=== PATIENT | male | born 1985 | race Caucasian/White ===

== ENCOUNTER → 2022-01-10 12:41 | Outpatient (CLI) | payer OTHER, SELFPAY ==
--- NOTE | 2022-01-10 | DI.MRI.S_ITS ---
PROCEDURE: MR CERVICAL SPINE WO CON INDICATIONS: Unspecified thoracic, thoracolumbar and lumbosacra TECHNIQUE: Noncontrast sagittal T1 spin echo and T2 fast spin echo, sagittal STIR, foraminal oblique sagittal T2 fast spin echo, and axial gradient echo or T2 fast spin echo through the cervical spine. COMPARISON: None. FINDINGS: Image quality: Excellent. Alignment and Curvature: There is overall straightening of the normal cervical lordosis. No focal AP alignment abnormality is seen. Bone Marrow: Marrow demonstrates normal overall signal. Spinal Cord: Visualized spinal cord has normal size and signal. No cerebellar tonsillar herniation. Paraspinous Soft Tissues: No paravertebral masses. Prevertebral soft tissues are normal in thickness. C2-C3: The disc height and disk signal are well-preserved. Mild disc osteophyte complex is seen, which is eccentric to the left. There is minimal to mild left-sided and no right-sided neural foraminal narrowing. The central canal is widely patent. C3-C4: The disc height and disk signal are well-preserved. A mild degree of generalized disc osteophyte complex is seen. Mild facet joint hypertrophy is seen. There is moderate left-sided and no right-sided neural foraminal narrowing. The central canal is widely patent. C4-C5: Mild loss of disc height is seen. Loss of disc signal is seen. Mild disc osteophyte complex is seen, which is eccentric to the left. Mild to moderate facet hypertrophy is seen. There is [id number] left-sided and no right-sided neural foraminal narrowing. Mild central canal narrowing is seen. C5-C6: The disc height and disk signal are relatively well-preserved. A mild degree of generalized disc osteophyte complex is seen. Mild facet joint hypertrophy is seen. There is mild left-sided and no right-sided neural foraminal narrowing. Mild central canal narrowing is seen. C6-C7: The disc height and disk signal are well-preserved. A mild degree of generalized disc osteophyte complex is seen. No significant neural foraminal narrowing is seen. Mild central canal narrowing is seen. C7-T1: No significant abnormality is seen. IMPRESSION: Multiple levels of cervical spine degenerative change are seen, with multiple sites of neural foraminal narrowing, left worse than right. Straightening of the normal cervical lordosis is seen, which is commonly observed in patients with muscular spasm. Dictated by: Chico Lynch M.D. on 01/10/2022 at 13:06 Approved by: Chico Lynch M.D. on 01/10/2022 at 13:09
== END ==
PROVIDERS: PCP Internal Medicine; Referring Provider Internal Medicine; Visit Provider Internal Medicine
DX: M47.812 Spondylosis without myelopathy or radiculopathy, cervical region (principal); M48.02 Spinal stenosis, cervical region; M51.26 Other intervertebral disc displacement, lumbar region; M51.9 Unspecified thoracic, thoracolumbar and lumbosacral intervertebral disc disorder
CPT/HCPCS: 72141